=== PATIENT | male | born 1950 | race Caucasian/White ===

== ENCOUNTER → 2019-01-18 10:15 | Outpatient (CLI) | payer MEDICARE, OTHER, SELFPAY ==
[2019-01-18 09:18] VITALS: BMI 32.8
[2019-01-18 11:35] LABS: Hematocrit 39.9 % (40-54); Hemoglobin 13.1 g/dl (13.0-16.5); Mean Corp Hgb Conc 32.8 g/gl (32-36); Mean Corpuscular Hgb 30.3 pg (27.0-32.0); Mean Corpuscular Volume 92.4 fL (80-94); Mean Platelet Vol. 11.3 fl (6.2-12.0); Platelet Count 180 K/mm3 (150-450); RBC Distribution Width CV 12.6 % (11.6-14.6); RBC Distribution Width SD 41.6 fl (35.1-43.9); Red Blood Count 4.32 M/mm3 (4.6-6.2); White Blood Count 10.9 K/mm3 (4.4-11.0)
[2019-01-18 11:39] LABS: Scan Indicated on CBC? Y/N NO
[2019-01-18 11:54] LABS: Anion Gap 9 (5-15); BUN 46 mg/dL (7-18); BUN/Creat Ratio 14.6 RATIO (10-20); Calcium,Total 9.2 mg/dL (8.5-10.1); Chloride 104 mmol/L (98-107); Creatinine, Serum 3.15 mg/dL (0.70-1.30); EST Glomerular Filtration Rate 21 mL/min (>60); Est Glom Filt Rate - Afr Amer 25 mL/min (>60); Glucose 219 mg/dL (74-106); Potassium 4.7 mmol/L (3.5-5.1); Sodium Level 140 mmol/L (136-145)
== END ==
PROVIDERS: Family Provider Physician Assistant; PCP Physician Assistant; Referring Provider Internal Medicine Cardiovascular Disease; Visit Provider Internal Medicine Cardiovascular Disease
DX: I48.92 Unspecified atrial flutter (principal); R00.0 Tachycardia, unspecified; Z79.01 Long term (current) use of anticoagulants
CPT/HCPCS: 36415; 80048; 85027

== ENCOUNTER 2019-02-09 10:36 | Day surgery (SDC) | payer MEDICARE, OTHER, SELFPAY ==
[2019-01-18 09:18] VITALS: BMI 32.8
--- NOTE | 2019-01-18 09:56 | HP_ITS ---
HPI HPI History of Present Illness Surgical H&P: Yes Details: Mr. 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 Cox. Patient referred to us for ongoing atrial flutter. Patient is been on chronic Coumadin therapy for many years after he had a DVT in the distant past. His INR is been monitored by his at home who is a registered nurse. She apparently works at [employer]. In addition the patient has a history of a renal transplant approximately 13 years ago and is on chronic immunosuppressive therapy of Prograf, CellCept, and prednisone. He apparently had lupus nephritis but has not had a lupus flare since that time. Approximately 4 weeks ago the patient had a syncopal episode refused transport and the squad once he recovered. Patient was then referred to his PCP who discovered he was in rapid atrial flutter. He was initially placed on Lopressor 50 mg twice daily and then increase to 75 twice daily. When this did not control his heart rate he had Cardizem CD 120 mg daily added. He has had some improvement of his heart rate. Patient states that he has had increasing shortness of breath, dyspnea on exertion, and fatigue as a lynch, unable to carry shashank of hay despite heart rate control. He is uncertain but he may have had intermittent atrial flutter for some time which is just not been diagnosed. He has had no further syncopal episodes. After seeing Dr. Cox recently, he underwent a non-walking nuclear stress test was 01/11/2019 which was a non-walking nuclear stress test and was negative for inducible ischemia. His EF at that time was found to be 50%. His most recent echocardiogram was also on 01/11/2019 which showed moderate concentric LVH, EF of 50 to 55%, mild biatrial enlargement, mild mitral regurgitation, moderate tricuspid regurgitation with an RVSP estimated to be 35 mmHg. He also had a small pericardial effusion with no evidence of tamponade. Apparently he has never had a cardioversion or a catheterization. He has never been told he had any myocardial infarction. In our office today's blood pressure is 130/80, and pulse is 100 and irregular. Physical exam shows clear lungs bilaterally, irregularly irregular rhythm, normal S1/S2, a soft 2 out of 6 systolic murmur, no edema. Lipids are pending. EKG dated 12/30/2018 shows atrial flutter with 2-1 conduction, normal QRS, no evidence of previous myocardial infarction Intake Vital Signs 01/18/19 Height 6 ft 01/18/19 Weight: 242 lb 01/18/19 Body Mass Index (BMI) 32.8 01/18/19 Blood Pressure 130/80 H 01/18/19 Blood Pressure Location Lt brachial 01/18/19 Blood Pressure Position Sitting 01/18/19 Respiratory Rate 20 H 01/18/19 Pulse Rate 100 01/18/19 Pulse Source Auscultation Intake Visit Reasons: INCREASE HR (Jewell MONTERROSO NP) Manager Sas Required: No Accompanied by: Is patient in pain?: No Allergies No Known Allergies Allergy (Verified 01/14/19 15:28) Medications atorvastatin 40 mg tablet 40 mg PO QDAY 10/15/17 [History Confirmed 01/14/19] blood sugar diagnostic strips See Dose Instructions .ROUTE .MEDSUPPLY #20 ea 10/15/17 [History Confirmed 01/14/19] insulin syringe U-100 with needle 1 mL 31 gauge x 01/20 See Dose Instructions .ROUTE .MEDSUPPLY #10 ea 10/15/17 [History Confirmed 01/14/19] lancets 33 gauge See Dose Instructions .ROUTE .MEDSUPPLY #100 ea 10/15/17 [History Confirmed 01/14/19] prednisone 5 mg tablet 5 mg PO QDAY 10/15/17 [History Confirmed 01/14/19] famotidine 20 mg tablet 20 mg PO DAILY 01/14/19 [History Confirmed 01/14/19] insulin detemir (U- 100) 100 unit/mL subcutaneous solution 40 unit SC QDAY ml 01/14/19 [History Confirmed 01/18/19] mycophenolate mofetil 250 mg capsule 250 mg PO DAILY cap 01/14/19 [History Confirmed 01/14/19] sulfamethoxazole 400 mg-trimethoprim 80 mg tablet 1 tab PO DAILY tab 01/14/19 [History Confirmed 01/14/19] tacrolimus 1 mg capsule 1 mg PO .COMPLEX 01/14/19 [History Confirmed 01/14/19] warfarin 5 mg tablet 5 mg PO DAILY 01/14/19 [History Confirmed 01/14/19] diltiazem CD 120 mg capsule,extended release 24 hr 120 mg PO DAILY 01/18/19 [History Confirmed 01/18/19] furosemide 20 mg tablet 20 mg PO DAILY 01/18/19 [History Confirmed 01/18/19] metoprolol tartrate 50 mg tablet 75 mg PO BID tab 01/18/19 [History Confirmed 01/18/19] sitagliptin 100 mg tablet 100 mg PO .qod tab 01/18/19 [History] [facility] Medical History Tachycardia (Acute) Pericardial effusion (Acute) Nonrheumatic aortic (valve) insufficiency (Acute) Nonrheumatic tricuspid valve regurgitation (Chronic) Nonrheumatic mitral valve regurgitation (Chronic) Near syncope (Acute) Atrial flutter (Acute) History of lupus nephritis (Chronic) [employer]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) History of DVT of lower extremity (Chronic) Skin cancer (Chronic) Lupus (Chronic) Kidney stones (Chronic) Diabetes type 2, controlled (Chronic) Surgical History Kidney replaced by transplant (Chronic) Kidney transplant recipient (Chronic) Family History Father Heart disease Mother Pancreatic cancer Social History Smoking Status: Never smoker second hand exposure: No alcohol intake: never substance use type: does not use ROS Const Const: Positive for other (Referred by DEBORAH Monterroso for abn echo and atrial flutter.); negative for fatigue, weakness, body ache, fever(s), headache(s), chills, frequent falls, night sweats, daytime sleepiness, difficulty sleeping, excessive sweating, weight gain, weight loss, increased appetite, poor appetite or anorexia Eyes Eyes: Negative for blind spots, loss of peripheral vision, transient loss of vision, blurry vision, change in vision, double vision, floaters, tunnel vision or other ENT ENT: Negative for headache(s), dizziness, hearing loss, tinnitus, Nosebleed/epistaxis, balance problems, post nasal drip, lip swelling, tongue swelling, bleeding gums, hoarseness, neck pain, dry mouth or other Cardio Chest Pain: No Palpitations: No (Had near syncopal episode a month ago, a flutter discovered by nephrology) Edema: None (He did have it but none after starting Diltiazem) Muscle aches with walking: None Resp Respiratory: Positive for SOB with activity (always, just carrying grain buckets.); negative for SOB at rest, SOB orthopnea\SOB lying down, Cough, Coughing up blood/hemoptysis, chest congestion, pain on inspiration, snoring, stridor, wheezing, crackles, paroxysmal nocturnal dyspnea or other GI GI: Negative nausea, vomiting, heartburn, constipation, belching, bloating, cramping, vomiting blood/hematemesis, bright, red blood in stools, black,tarry stools, loose stools, Difficulty Swallowing or other : Negative for hematuria, frequent nighttime urination/ nocturia, erectile dysfunction or abnormal vaginal bleeding Musc Musc: Negative for muscle aches/ myalgia, muscle weakness, joint pain or balance problems Skin Skin: Negative redness, non-healing lesions, rash, unusual bruising, skin ulcer, wounds, jaundice or other Neuro Neuro: Negative for dizziness, lightheadedness, near syncope, syncope, orthostatic symptoms, frequent falls, headache(s), weakness, confusion, memory loss, restless legs, blurry vision, double vision, vertigo, seizures, lack of coordination or other Ancelmo Hematologic/Lymphatic: Negative for easy bleeding, easy bruising, enlarged lymph nodes or other Endo Endo: Negative for fatigue, cold intolerance, heat intolerance, excessive sweating, flushing, increased thirst/drinking, increased hunger, hair loss, hair growth or other Psych Psych: Negative for anxiety, depression, thoughts of harming anyone, thoughts of harming yourself, visual hallucinations, panic attacks or audible hallucinations Allergy Allergy/Immunology: Negative for throat swelling, Negative for tongue swelling, Negative for hives, Negative for rash, Negative for lip swelling Cardiology Exam Const Appearance: cooperative, healthy appearing and no acute distress Nutritional Appearance: well nourished Orientation: alert, oriented x3 and oriented to person Head Head: normal to inspection, normocephalic and atraumatic Nose: external nose normal Face and Sinus: face symmetric Mouth: oral mucosae normal Eyes General: appearance normal, both eyes and all related structures Eyelids: eyelids normal Conjunctivae: conjunctivae normal Pupils: PERRL and normal by confrontation EOM: EOM intact bilaterally Neck Neck: normal visual inspection and full ROM Carotids: normal carotid upstroke Chest Chest inspection: normal inspection of the chest Auscultation: Bilateral: Clear to Auscultation Cardio Palpation: normal PMI Rate: regular rate Rhythm: irregular rhythm Heart sounds: S2 normal Murmur: Grade 2/6 and holosystolic GI GI: normal to inspection, no hepatosplenomegaly and bowel sounds present Neuro General: alert, awake, oriented x3, CN's II-XI intact bilaterally and moves all extremities Skin Skin: no rashes or lesions noted Extremities Pulses: Normal: Right Femoral Pulse, Left Femoral Pulse, Right Dorsalis Pedis Pulse, Left Dorsalis Pedis Pulse, Right Posterior Tibial Pulse, Left Posterior Tibial Pulse, Right Radial Pulse, Left Radial Pulse Lower Extremity Edema: None: Bilateral Psych Psychological: normal affect Assessment & Plan 1. Atrial flutter I48.92 Plan 1. Atrial flutter: Patient apparently has newly diagnosed atrial flutter after a syncopal episode. His syncopal episode may have been due to severe tachycardia causing decreased filling time. He feels much better on dual heart rate control with calcium channel blockers and beta-kaiser therapy. He has been on chronic Coumadin therapy for many years due to a history of a DVT. His echocardiogram recently showed normal intact LV function, no evidence of pulmonary hypertension, and a small pericardial effusion. His stress test although non-walking, was negative for inducible ischemia. I do not believe the patient requires a diagnostic coronary angiogram at this time, and would hold off on doing so anyhow given his history of renal transplantation 13 years ago. He has been on chronic Coumadin therapy since his DVT many years ago. I recommended the patient be arranged for elective DC cardioversion once it is been documented that his INRs are above 2.0 for 4 consecutive weeks. Apparently his who is a registered nurse takes care of his INRs, and she is agreed to document this for the next 4 weeks. Should the patient have a successful cardioversion, we will continue medical therapy with beta-kaiser and calcium channel kaiser therapy. I would not recommend antiarrhythmics at this time. 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 He will require long-term Coumadin therapy anyhow given his atrial flutter history as well as his DVT history. 2. Hyperlipidemia: I will defer this to his PCP. We do not have a lipid profile in our inventory. 3. 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 Orders Orders: Cardioversion 02/09/19 CBC-Complete Blood Cnt No Diff Today Plan Detail Other Orders Orders: Cardioversion 02/09/19 I48.91 CBC-Complete Blood Cnt No Diff Today R00.0 Other Medications New: metoprolol tartrate 75 mg PO BID furosemide 20 mg PO DAILY diltiazem CD 120 mg PO DAILY Changed: From: insulin detemir (U- (Levemir U-) 23 units (0.23 mL) subcut QDAY 20 mL 11RF e11.9 E11.9 To: insulin detemir (U- (Levemir U-) 40 units subcut QDAY e11.9 E11.9 Follow Up +6M (Marcus) Coding Level of Care Code Off vis,new,level 4 Diagnoses Atrial flutter I48.92 snf current use of anticoagulant Z79.01 Coding Level of Care Code Off vis,new,level 4 Diagnoses Atrial flutter I48.92 snf current use of anticoagulant Z79.01 01/18/19 0956 <Electronically signed by Joce Velazquez MD> Date Joce Velazquez MD
[2019-02-08 10:56] VITALS: BMI 32.8
[2019-02-09 10:56] LABS: Prothrombin Time Fingerstick 41.8 SEC (11.9-14.4)
--- NOTE | 2019-02-09 13:38 | CARDIOVERS_ITS ---
Cardioversion Cardioversion: Mr. Darby is a 68-year-old gentleman who was diagnosed with atrial flutter. Patient placed on Coumadin, and had recommended elective DC cardioversion in order to improve his shortness of breath. Patient was brought to the [facility] holding area in the fasting state. The risks/benefits of the procedure were thoroughly explained the patient and informed consent was obtained. The defibrillator pads were placed in the AP position. A baseline EKG was obtained which reconfirmed atrial flutter with 2-1 conduction. With the assistance of Dr. Hay Darby the patient was given 60 mg of IV propofol, initially with 40 and then with 20 mg IV. Once adequate sedation was obtained, the patient underwent a successful synchronized biphasic DC cardioversion at 200 J. This converted him from atrial flutter to normal sinus rhythm. His normal sinus rhythm remained durable, and the defibrillator pads removed. The patient spontaneously awoke, moves all 4 extremities, and tolerated the procedure well. Conclusions: Successful Coumadin assisted DC cardioversion with a single biphasic synchronized 200 J shock. The patient tolerated procedure well. No complications. He will follow-up in our office in 1 week's time for an EKG. Should the patient reverted back to atrial flutter we can entertain the option of adding amiodarone for possible atrial flutter ablation. No complications.
--- NOTE | 2019-02-09 13:41 | PRO.PCM_ITS ---
Procedure Report Date of Procedure: 02/09/19 CONSCIOUS SEDATION REPORT DATE OF SERVICE: February 09, 2019 BRIEF HISTORY OF PRESENT ILLNESS: The patient is a 68-year-old male who presents to [facility] for an elective outpatient cardioversion due to underlying atrial fibrillation/flutter. The patient is currently anticoagulated on Coumadin with an INR of 3.7. His last known ejection fraction was approximately 50%. The patient denies any previous anesthetic complications. His medical history is significant for prior renal transplantation surgery. The patient denies a history of obstructive sleep apnea or COPD. PHYSICAL EXAMINATION: VITAL SIGNS: Reviewed and were acceptable. GENERAL: The patient is an obese male, in no apparent distress, speaking in full sentences. HEENT: Normocephalic, atraumatic. Mucous membranes are moist and pink. Good mouth opening noted. Trachea is midline. Edentulous. CHEST: S1, S2 irregularly irregular. No murmurs, rubs or gallops were noted. LUNGS: Clear to auscultation bilaterally without appreciable wheezes, rales or rhonchi. ABDOMEN: Soft, nontender, nondistended. Positive bowel sounds. EXTREMITIES: There is no clubbing, cyanosis or edema. ASA Class: II DESCRIPTION OF PROCEDURE: After confirmation of informed consent, the patient's anesthesia plan was reviewed in detail. Propofol was chosen. Risks and benefits were reviewed and the patient agreed to proceed. At 1322, the patient was given 60 mg of propofol. The patient achieved an appropriate level of sedation and was given a 200 joule synchronized cardioversion by Dr. Velazquez at the bedside. This was successful in achieving normal sinus rhythm. The patient was monitored until 1330, at which time he reached his baseline mental status and function. The patient tolerated the procedure well. COMPLICATIONS: None ESTIMATED BLOOD LOSS: None RECOMMENDATIONS: Okay to recover in usual fashion. Code Visit [id number]: Other Procedure See Report - [id number]
== END 2019-02-09 14:38 | disposition home or self-care (01) ==
LOC: CLSP 10:37
PROVIDERS: Family Provider Physician Assistant; PCP Physician Assistant; Referring Provider Internal Medicine Cardiovascular Disease; Visit Provider Internal Medicine Cardiovascular Disease
DX: I48.92 Unspecified atrial flutter (principal); E11.9 Type 2 diabetes mellitus without complications; M32.14 Glomerular disease in systemic lupus erythematosus; I35.1 Nonrheumatic aortic (valve) insufficiency; I36.1 Nonrheumatic tricuspid (valve) insufficiency; I34.0 Nonrheumatic mitral (valve) insufficiency; Z85.828 Personal history of other malignant neoplasm of skin; Z87.442 Personal history of urinary calculi; Z86.718 Personal history of other venous thrombosis and embolism; Z94.0 Kidney transplant status; Z79.01 Long term (current) use of anticoagulants; Z79.4 Long term (current) use of insulin; Z79.899 Other long term (current) drug therapy
CPT/HCPCS: 36416; 85610; 92960; 93005; J7040

== ENCOUNTER → 2019-04-19 09:46 | Outpatient (CLI) | payer MEDICARE, OTHER, SELFPAY ==
[2019-04-07 13:26] VITALS: BMI 31.6
== END ==
PROVIDERS: Family Provider Physician Assistant; PCP Physician Assistant; Referring Provider Physician Assistant Medical; Visit Provider Physician Assistant Medical
DX: I48.92 Unspecified atrial flutter (principal); R06.09 Other forms of dyspnea; R55 Syncope and collapse
CPT/HCPCS: 93225; 93226

== ENCOUNTER 2019-04-26 07:02 | Day surgery (SDC) | payer MEDICARE, OTHER, SELFPAY ==
[2019-04-07 13:26] VITALS: BMI 31.6
--- NOTE | 2019-04-22 15:35 | RAD_ITS ---
STUDY: X-RAY CHEST REASON FOR EXAM: Male, 68 years old. Atrial fibrillation and ventricular tachycardia. Preoperative exam for heart surgery. TECHNIQUE: PA and lateral views of the chest. COMPARISON: None. FINDINGS: Small area of linear scarring above the left costophrenic angle. Otherwise the lung reardon are expanded and clear without major consolidation, atelectasis or substantial pleural effusion. There is no demonstrated pleural abnormality. Normal size heart. Normal mediastinum and elena. Normal visualized pulmonary arteries. There is atherosclerotic calcification of the aortic arch with tortuosity. There are diffuse degenerative changes of the visualized thoracic spine. Normal visualized ribs, clavicles, and shoulders. There is no demonstrated abnormality of the visualized soft tissue structures of the upper abdomen. RAD/Chest PA and Lateral IMPRESSION: Minimal scarring above the left costophrenic angle. Otherwise negative for consolidation, major atelectasis, cardiomegaly or pleural effusion. Atherosclerotic calcification and tortuosity of thoracic aorta. Electronically Signed: Radha Rivas MD at 15:55 EDT , Service support ,
[2019-04-22 17:14] LABS: Absolute Lymphocyte Count 0.85 X10^3/uL (0.83-4.51); Absolute Neutrophil Count 6.2 X10^3/uL (2.0-7.7); Basophil# 0.03 X10^3/uL; Basophil% 0.4 % (0-1); Eosinophil# 0.14 X10^3/uL; Eosinophils% 1.8 % (0-5); Hematocrit 35.3 % (40-54); Hemoglobin 11.5 g/dL (13.0-16.5); Lymphocyte # 0.85 X10^3/ul (4.0); Lymphocyte % 10.8 % (19-41); Mean Corp Hgb Conc 32.6 g/dL (32-36); Mean Corpuscular Hgb 30.8 pg (27.0-32.0); Mean Corpuscular Volume 94.6 fL (80-94); Mean Platelet Vol. 11.1 fl (6.2-12.0); Monocyte# 0.58 X10^3/uL; Monocyte% 7.4 % (0-10); NRBC Flagged by Analyzer 0 % (0-5); Neutrophil # 6.24 X10^3/uL (2.7-7.7); Neutrophil % 79.2 % (47-70); Platelet Count 150 K/mm3 (150-450); RBC Distribution Width CV 13.2 % (11.6-14.6); RBC Distribution Width SD 44.7 fl (35.1-43.9); Red Blood Count 3.73 M/mm3 (4.6-6.2); White Blood Count 7.9 K/mm3 (4.4-11.0)
[2019-04-22 17:47] LABS: Anion Gap 7 (5-15); BUN 44 mg/dL (7-18); BUN/Creat Ratio 15.6 RATIO (10-20); Calcium,Total 8.7 mg/dL (8.5-10.1); Chloride 108 mmol/L (98-107); Creatinine, Serum 2.82 mg/dL (0.70-1.30); EST Glomerular Filtration Rate 24 mL/min (>60); Est Glom Filt Rate - Afr Amer 29 mL/min (>60); Glucose 148 mg/dL (74-106); Potassium 4.6 mmol/L (3.5-5.1); Sodium Level 141 mmol/L (136-145)
[2019-04-22 17:48] LABS: International Normalized Ratio 2.4; Prothrombin Time (Protime)PT. 25.9 SECONDS (11.7-14.9)
[2019-04-22 17:49] LABS: Partial Thromboplast Time 39.4 Seconds (24.1-36.2)
[2019-04-25 08:36] VITALS: BMI 31.6
[2019-04-26 07:57] LABS: Prothrombin Time Fingerstick 17.1 SEC (11.9-14.4)
--- NOTE | 2019-04-26 09:15 | PCM.HP.BLA ---
Problem List (1) Ventricular tachycardia seen on supervisor accounting clerks Status: Acute (2) Atrial fibrillation Status: Chronic Qualifiers: (3) Diabetes type 2, controlled Status: Chronic (4) History of DVT of lower extremity Status: Chronic (5) History of cardioversion Status: Chronic (6) Kidney replaced by transplant Status: Chronic (7) Kidney stones Status: Chronic (8) Nonrheumatic aortic (valve) insufficiency Status: Chronic Comment: Mild per echo 01/11/2019 done @ [facility] (9) Nonrheumatic mitral valve regurgitation Status: Chronic Comment: Mildper echo 01/11/2019 done @ [facility] with moderate mitral annular calcification and mildly thickeed mitral valve leaflets. (10) Nonrheumatic tricuspid valve regurgitation Status: Chronic Comment: Mild to moderate per echo 01/11/2019 done @ [facility], RVSP 35 mmhg (11) Pericardial effusion Status: Resolved Comment: Small, anterior per echo 01/11/2019 done @ [facility] (12) Tachycardia Status: Resolved History and Physical Date of Admission: 04/26/19 [facility] [facility] [address] [place] [address] OFFICE VISIT Date of Service: 04/07/19 MR#: [id number] Acct: [id number] Name: CACHORRO RODRÍGUEZ Rep #: [id number] : 1950 Provider: Diya Laurent Age/Sex: 68/M Location: [facility] [place] Status: Signed HPI HPI History of Present Illness Details: This is a 68-year-old gentleman that presents here today for a cardiovascular follow-up. He has a history of atrial flutter, DVT, renal transplant. Patient did undergo a cardioversion in February of this year. He feels that he is less SOB than before. Although, he gets SOB with any exertion. He did not get SOB walking from the car to here. 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 He does not have any chest pain/heaviness/tightness. He does occasionally have positional dizziness. He does not have any edema. is concerned about his metoprolol as she has discussed this with his bar gauger and lubricator tender as patient is a kidney transplant and his creatinine is elevated. Print Traffic Manager would like for his metoprolol to be decreased if possible. Intake Vital Signs 04/07/19 Height 6 ft 04/07/19 Weight: 233 lb 04/07/19 Body Mass Index (BMI) 31.6 04/07/19 Blood Pressure 104/63 04/07/19 Blood Pressure Location Lt brachial 04/07/19 Respiratory Rate 18 04/07/19 Pulse Rate 74 04/07/19 Pulse Source Monitor 04/07/19 Pulse Ox 100 Intake Visit Reasons: 6 wk FU Chrome Tanner Required: No Accompanied by: Is patient in pain?: No Allergies No Known Allergies Allergy (Verified 04/07/19 13:27) Medications atorvastatin 40 mg tablet 40 mg PO QDAY 10/15/17 [History Confirmed 04/07/19] blood sugar diagnostic strips See Dose Instructions .ROUTE .MEDSUPPLY #20 ea 10/15/17 [History Confirmed 04/07/19] insulin syringe U-100 with needle 1 mL 31 gauge x 5/16 See Dose Instructions .ROUTE .MEDSUPPLY #10 ea 10/15/17 [History Confirmed 04/07/19] lancets 33 gauge See Dose Instructions .ROUTE .MEDSUPPLY #100 ea 10/15/17 [History Confirmed 04/07/19] prednisone 5 mg tablet 5 mg PO QDAY 10/15/17 [History Confirmed 04/07/19] insulin detemir (U-100) 100 unit/mL subcutaneous solution 40 unit SC QDAY ml 01/14/19 [History Confirmed 04/07/19] mycophenolate mofetil 250 mg capsule 250 mg PO DAILY cap 01/14/19 [History Confirmed 04/07/19] sulfamethoxazole 400 mg-trimethoprim 80 mg tablet 1 tab PO DAILY tab 01/14/19 [History Confirmed 04/07/19] tacrolimus 1 mg capsule 1 mg PO .COMPLEX 01/14/19 [History Confirmed 04/07/19] diltiazem CD 120 mg capsule,extended release 24 hr 120 mg PO DAILY 01/18/19 [History Confirmed 04/07/19] furosemide 20 mg tablet 20 mg PO DAILY 01/18/19 [History Confirmed 04/07/19] sitagliptin 100 mg tablet 100 mg PO .qod tab 01/18/19 [History Confirmed 04/07/19] warfarin 5 mg tablet 5 mg PO .COMPLEX 01/26/19 [History Confirmed 04/07/19] metoprolol tartrate 50 mg tablet 50 mg PO BID #270 tab 04/07/19 [Rx Confirmed 04/07/19] [facility] Medical History (Updated 04/07/19 @ 14:43 by DEBORAH Verde) Atrial fibrillation (Chronic) Tachycardia (Resolved) Pericardial effusion (Resolved) Nonrheumatic aortic (valve) insufficiency (Chronic) Nonrheumatic tricuspid valve regurgitation (Chronic) Nonrheumatic mitral valve regurgitation (Chronic) Near syncope (Resolved) Atrial flutter (Resolved) History of lupus nephritis (Chronic) senior living current use of anticoagulant (Chronic) History of DVT of lower extremity (Chronic) Skin cancer (Chronic) Lupus (Chronic) Kidney stones (Chronic) Diabetes type 2, controlled (Chronic) Surgical History (Updated 02/09/19 @ 16:25 by Alie Villanueva) History of cardioversion (Chronic 02/09/19) Kidney replaced by transplant (Chronic) Kidney transplant recipient (Chronic) Family History (Updated 10/15/17 @ 08:46 by Sia Mann) Father Heart disease Mother Pancreatic cancer Social History (Updated 04/07/19 @ 14:44 by DEBORAH Verde) Smoking Status: Never smoker second hand exposure: No alcohol intake: never substance use type: does not use ROS Const Const: Negative for fatigue, weakness, fever(s) or headache(s) Eyes Eyes: Negative for blind spots, loss of peripheral vision or transient loss of vision ENT ENT: Negative for headache(s), dizziness, tinnitus or Nosebleed/epistaxis Cardio Chest Pain: No Palpitations: No Edema: None Muscle aches with walking: None Resp Respiratory: Positive for SOB with activity; negative for SOB at rest, SOB orthopnea\SOB lying down or Cough GI GI: Negative nausea, vomiting, heartburn or vomiting blood/hematemesis : Negative for hematuria Musc Musc: Negative for muscle aches/ myalgia Neuro Neuro: Negative for dizziness, lightheadedness, near syncope, syncope, orthostatic symptoms, headache(s) or weakness Ancelmo Hematologic/Lymphatic: Negative for easy bleeding Endo Endo: Negative for fatigue Cardiology Exam Const Appearance: cooperative, healthy appearing and no acute distress Nutritional Appearance: well nourished Orientation: alert, oriented x3 and oriented to person Head Head: normal to inspection, normocephalic and atraumatic Nose: external nose normal Face and Sinus: face symmetric Mouth: oral mucosae normal Eyes General: appearance normal, both eyes and all related structures Eyelids: eyelids normal Conjunctivae: conjunctivae normal Pupils: PERRL and normal by confrontation EOM: EOM intact bilaterally Neck Neck: normal visual inspection and full ROM Carotids: normal carotid upstroke Chest Chest inspection: normal inspection of the chest Auscultation: Bilateral: Clear to Auscultation Cardio Palpation: normal PMI Rate: regular rate Rhythm: irregular rhythm Heart sounds: S2 normal Murmur: Grade 2/6 and holosystolic GI GI: normal to inspection, no hepatosplenomegaly and bowel sounds present Neuro General: alert, awake, oriented x3, CN's II-XI intact bilaterally and moves all extremities Skin Skin: no rashes or lesions noted Extremities Pulses: Normal: Right Femoral Pulse, Left Femoral Pulse, Right Dorsalis Pedis Pulse, Left Dorsalis Pedis Pulse, Right Posterior Tibial Pulse, Left Posterior Tibial Pulse, Right Radial Pulse, Left Radial Pulse Lower Extremity Edema: None: Bilateral Psych Psychological: normal affect Assessment & Plan 1. Paroxysmal atrial fibrillation I48.0 Plan Patient has not had any symptomatic recurrence of his atrial fibrillation however he was unaware of this rhythm to start with. With 's concerns over his increasing creatinine and his lower heart rate readings with exertion would like to decrease his metoprolol to 50 mg twice a day. Will obtain a Holter monitor, if overall heart rate is low we will continue to decrease his metoprolol. We will also have him stop his Lasix as I do not feel that he has heart failure symptoms, this was likely related to when he was in atrial fibrillation. Plan Detail Other Orders Orders: Cardiac Holter Monitor, Set-Up Today I48.92, R06.09, R55 Cardiac Holter Monitor/Day Today I48.92, R06.09, R55 Other Medications Changed: From: metoprolol tartrate 75 mg (1.5 x 50 mg) PO BID 270 tabs 3RF To: metoprolol tartrate 50 mg PO BID 270 tabs 3RF Discontinued: famotidine Discontinued Reason: Order Completed 20 mg PO DAILY Additional Comments Thank you for allowing us to participate in patient's plan of care, if you have any questions please do not hesitate to call. This note was generated using a voice recognition system and there may be incorrect words, spelling or punctuation errors that were not noted when reviewing the office note prior to saving. Follow Up 1 Month (MMM, schedule HM for 7-10 days out) Coding Level of Care Code Off vis,est,level 4 Diagnoses Paroxysmal atrial fibrillation I48.0 ??Atrial fibrillation type: paroxysmal Coding Level of Care Code Off vis,est,level 4 Diagnoses Paroxysmal atrial fibrillation I48.0 ??Atrial fibrillation type: paroxysmal Supplemental Info Supplemental Information Diagnostics Electrocardiogram 02/16/19 04/07/19 1444 <Electronically signed by Diya CABRERA> Date Diya CABRERA [facility] Signature: Date (if applicable) CC: DEBORAH MONTERROSO ~ Addendum: Patient seen and examined, no interim changes from his history and physical from 04/07/2019. Patient will proceed with left heart catheterization via the left groin to avoid damaging his right renal transplant. No LV gram will be performed given his chronic renal insufficiency. Patient may require staged procedure should he require intervention.
--- NOTE | 2019-04-26 10:00 | CL.D_ITS ---
Patient Name: CACHORRO RODRÍGUEZ Study Date: 04/26/2019 Performing: Joce Velazquez MD Ht: 72.04 inches 183 cm : 1950 Wt: 227.01 lbs 102.97 kg Age: 68 Gender: male BSA: 2.25 PROCEDURE(S) PERFORMED FE48-UML/COR/LV CLINICAL PROFILE AND INDICATIONS Indications: Suspected CAD, Cardiac Arrythmia Heart Failure: None Stress/Imaging Date: 01/11/2019Stress Test with SPECT MPI: Negative CAD Presentations: Other: Dyspnea, vtach Comorbidities/Risk Factors: Hypertension Dyslipidemia Diabetes Mellitus: Diabetes Therapy: Insulin CONCLUSIONS Normal LV size, wall motion,and systolic function Perserved Left Ventricular systolic function with normal EDP Non obstructive coronary arteries RECOMMENDATIONS Management as per referring Contract Paralegal d/c plavix d/c caffeine Manual sheath removal. DESCRIPTION OF PROCEDURE The patient arrived to the procedure lab. The risks and benefits of the procedure as well as a full d escription of our services here and current unavailability of surgical backup were fully explained to the patient and/or their significant other prior to the catheterization. The Timeout was completed, verifying the correct patient and procedure. The patient's procedural site was prepped and draped in the usual fashion. Local anesthetic was given subcutaneously to left groin region with Lidocaine 2%. Using a modified Seldinger technique, arterial access was obtained via the left femoral artery, a 4Fr sheath was inserted Left Coronary Artery selective angiography was performed in multiple views usin g a 4 Fr. JL5 catheter. Left Coronary Artery selective angiography was performed in multiple views us ing a 4 Fr. JL4 catheter. Right Coronary Artery selective angiography was then performed in multiple views using a 4 Fr. 3DRC catheter. Left Ventriculography was performed in CASTANO projection using a 4 Fr. Pigtail catheter. LV to AO pullback pressures were then recorded.The arterial sheath wa s pulled and manual compression applied until hemostasis is achieved. CORONARY ANGIOGRAPHY DOMINANCE: Right Dominant LEFT HEART ASSESSMENT Left Ventricular Ejection Fraction: by LV Gram 65 % Normal LV wall motion Normal Left Ventricular systolic function LVEDP: 11 mmHg Normal Left Ventricular End Diastolic Pressure LEFT MAIN: Angiographically normal LEFT ANTERIOR DESCENDING ARTERY: Mild luminal irregularities less than 30% CIRCUMFLEX ARTERY: MID CIRC: 40 % Stenosis RIGHT CORONARY ARTERY: Angiographically normal COMPLICATIONS No Complications PROCEDURE MEDICATIONS Versed 1 mg IV Oxygen: 2 L/min via nasal cannula IV Fluids: .9 NaCl IV started @ 200 ml/hr 04/26/2019 07:48:18 SUMMARY OF HEMODYNAMIC DATA Time AIR REST ECG 07:45:21 ECG 07:46:34 AO 130/61 (85) SA 09:39:08 LV 124/2, 9 09:47:34 LV 123/-7, 10 09:48:24 LV 129/-8, 11 09:48:30 LVp 131/-7, 12 09:48:36 AOp 128/59 (83) 09:48:41 Signed By Joce Velazquez MD On 04/26/2019 09:59:44 Joce Velazquez MD
== END 2019-04-26 14:40 | disposition home or self-care (01) ==
LOC: CLSP 07:03
PROVIDERS: Family Provider Physician Assistant; PCP Physician Assistant; Referring Provider Internal Medicine Cardiovascular Disease; Visit Provider Internal Medicine Cardiovascular Disease
DX: I25.10 Atherosclerotic heart disease of native coronary artery without angina pectoris (principal); I48.0 Paroxysmal atrial fibrillation; E78.5 Hyperlipidemia, unspecified; Z11.9 Encounter for screening for infectious and parasitic diseases, unspecified; Z79.4 Long term (current) use of insulin; I12.9 Hypertensive chronic kidney disease with stage 1 through stage 4 chronic kidney disease, or unspecified chronic kidney disease; N18.9 Chronic kidney disease, unspecified; I08.1 Rheumatic disorders of both mitral and tricuspid valves; Z79.01 Long term (current) use of anticoagulants; Z86.718 Personal history of other venous thrombosis and embolism
CPT/HCPCS: 36415; 36416; 71046; 80048; 85025; 85610; 85730; 93458; 99152; 99153; J7040; Q9967; C1769; C1894

== ENCOUNTER 2020-03-30 09:45 | Day surgery (SDC) | payer MEDICARE, OTHER, SELFPAY ==
[2020-03-20 08:38] VITALS: BMI 32.6
[2020-03-28 11:07] VITALS: BMI 32.6
[2020-03-30 10:37] LABS: AST(SGOT) 14 U/L (15-37); Alanine Aminotransfer ALT/SGPT 27 U/L (16-61); Albumin, Serum 3.3 g/dL (3.2-5.0); Alkaline Phosphatase 74 U/L (45-117); Anion Gap 4 (5-15); BUN 47 mg/dL (7-18); BUN/Creat Ratio 18.8 RATIO (10-20); Bilirubin, Direct 0.28 mg/dL (0.00-0.30); Calcium,Total 8.8 mg/dL (8.5-10.1); Chloride 106 mmol/L (98-107); Cholesterol 124 mg/dL (200); EST Glomerular Filtration Rate 27 mL/min (>60); Est Glom Filt Rate - Afr Amer 33 mL/min (>60); Estimated Creatinine Clearance 30.18 ml/min; Globulin 3.5 g/dL (2.2-4.2); Glucose 159 mg/dL (74-106); High Density Lipoprotein 42 mg/dL; Potassium 4.4 mmol/L (3.5-5.1); Protein, Total 6.8 g/dL (6.4-8.2); Sodium Level 138 mmol/L (136-145); Triglycerides 126 mg/dL; Very Low Density Lipoprotein 25 mg/dL (5-40)
[2020-03-30 10:40] LABS: International Normalized Ratio 1.9; Prothrombin Time (Protime)PT. 21.2 SECONDS (11.7-14.9)
--- NOTE | 2020-03-30 11:27 | CARDIOVERS_ITS ---
Cardioversion Cardioversion: DC cardioversion report the patient was brought to the Shipboard Intelligence Analyst in the fasting state. The risks/benefits of the procedure were thoroughly explained the patient and informed consent was obtained. The defibrillator pads were placed in the AP position. With the assistance of Dr. Ad Gonzales, the patient received a total 40 mg of IV propofol. Once adequate sedation was obtained the patient received a single 200 J biphasic synchronized shock which converted him from atrial flutter to normal sinus rhythm with PACs. This rhythm remained durable, and the pacer pads removed. The patient spontaneously awoke, move all 4 extremities and tolerated the procedure well. Conclusions: Successful Coumadin assisted DC cardioversion converting him from atrial flutter to normal sinus rhythm with a single 200 J biphasic shock. Patient tolerate procedure well. He will continue on his current medical regimen of diltiazem and below. Should the patient revert back to atrial flutter, he may require other additional antiarrhythmic such as flecainide or amiodarone. I would be cautious with amiodarone given the patient's use of chronic immunosuppressive agents for his renal transplant. Many thanks to Dr. Ad Gonzales for his assistance. Patient may be discharged home at the appropriate post procedure time.
--- NOTE | 2020-03-30 12:47 | PCM.OP.PRO ---
Problem List (1) Atrial fibrillation Status: Chronic Qualifiers: Comment: DCCV on 02/09/2019; (2) Diabetes type 2, controlled Status: Chronic Qualifiers: (3) History of DVT of lower extremity Status: Chronic (4) History of cardioversion Status: Chronic Comment: 02/09/2019, 03/30/2020 (5) History of left heart catheterization Status: Chronic Comment: Normal LV size, wall motion,and systolic function; Perserved Left Ventricular systolic function with normal EDP; Non obstructive coronary arteries per C done per [facility] @ [facility] (6) History of lupus nephritis Status: Chronic (7) Hyperlipidemia Status: Chronic Qualifiers: (8) Kidney replaced by transplant Status: Chronic (9) Lupus Status: Chronic (10) Nonrheumatic aortic (valve) insufficiency Status: Chronic Comment: Mild per echo 01[facility]11[facility]2019 [facility] (11) Nonrheumatic mitral valve regurgitation Status: Chronic Comment: Mildper echo 01/11/2019 done [facility] with moderate mitral annular calcification and mildly thickeed mitral valve leaflets. (12) Skin cancer Status: Chronic (13) Atrial flutter Status: Resolved Qualifiers: Procedure Report Date of Procedure: 03/30/20 - Conscious sedation CONSCIOUS SEDATION REPORT BRIEF HISTORY OF PRESENT ILLNESS: The patient is a 69-year-old female who presented to [facility] for an elective outpatient cardioversion due to underlying atrial fibrillation. The patient reports no PO intake since midnight. The patient does not have a history of obstructive sleep apnea. The patient reports no history of smoking and COPD. The patient denies any recent constitutional symptoms such as fevers, chills, nausea or vomiting. The patient denies previous anesthetic complications. Patient's last known ejection fraction was 65%. Patient's INR on the day of the procedure was 1.9. Documentation from old cardioversions were reviewed prior to this procedure PHYSICAL EXAMINATION: VITAL SIGNS: Reviewed and were acceptable. GENERAL: The patient is a male, in no apparent distress, speaking in full sentences. HEENT: Normocephalic, atraumatic. Mucous membranes are moist and pink. Good mouth opening noted. Trachea is midline. Good neck mobility. MP III CHEST: S1, S2 irregularly irregular. No murmurs, rubs or gallops were noted. LUNGS: Clear to auscultation bilaterally without appreciable wheezes, rales or rhonchi. ABDOMEN: Soft, nontender, nondistended. Positive bowel sounds. EXTREMITIES: There is no clubbing, cyanosis or edema. ASA Class: II DESCRIPTION OF PROCEDURE: After confirmation of informed consent, the patient's anesthesia plan was reviewed in detail. Propofol was chosen. Risks and benefits were reviewed and the patient agreed to proceed. At 11:08 AM, the patient was given 40 mg of propofol. The patient achieved an appropriate level of sedation and received 1 attempt synchronized cardioversion, at [address] Velazquez at the bedside. This was successful in achieving normal sinus rhythm. The patient was monitored until 11:20 AM, at which time the patient reached their baseline mental status and function. The patient tolerated the procedure well. COMPLICATIONS: None ESTIMATED BLOOD LOSS: None RECOMMENDATIONS: Okay to recover in usual fashion. [id number]: Other Procedure See Report - 42095 -12 minutes conscious sedation
== END 2020-03-30 12:20 | disposition home or self-care (01) ==
LOC: CLSP 09:46
PROVIDERS: PCP Physician Assistant; Referring Provider Internal Medicine Cardiovascular Disease; Visit Provider Internal Medicine Cardiovascular Disease
DX: I48.0 Paroxysmal atrial fibrillation (principal); I48.92 Unspecified atrial flutter; E78.5 Hyperlipidemia, unspecified; M32.14 Glomerular disease in systemic lupus erythematosus; E11.9 Type 2 diabetes mellitus without complications; I08.0 Rheumatic disorders of both mitral and aortic valves; Z86.718 Personal history of other venous thrombosis and embolism; Z94.0 Kidney transplant status
CPT/HCPCS: 36415; 80048; 80061; 80076; 85610; 92960; 93005; J7040